=== PATIENT | male | born 1995 | race Caucasian/White ===

== ENCOUNTER 2017-07-28 18:29 | Emergency (ER) | payer SELFPAY ==
[~2017-07-28] VITALS: Ht 198.1 cm; Wt 83.9 kg
[2017-07-28 19:15] VITALS: BP 150/70
[2017-07-28] MEDS ORDERED: ROBAXIN-750750 MG PO (20:52)
[2017-07-28] MEDS ORDERED: ZOFRAN4 M3 ORAL (20:52)
[2017-07-28] MEDS ORDERED: IBUPROFEN600 MG ORAL (20:52)
[2017-07-28 20:58] VITALS: BP 142/72
--- NOTE | 2017-07-29 10:46 | Diagnostic Imaging Report ---
Indication: Back pain Comparison: None Findings: 3 views of the lumbar spine were obtained. No acute fracture or malalignment is identified. There is transitional anatomy at the lumbosacral junction with left unilateral pseudoarthrosis noted. Vertebral body heights and disk spaces are well maintained. Posterior elements are unremarkable. Impression: No acute findings. Left L5-S1 pseudarthrosis
--- NOTE | 2017-07-29 10:47 | Diagnostic Imaging Report ---
Indication: Neck Pain Findings: 3 views of the cervical spine were obtained. There is no acute fracture identified. Alignment is normal. The open-mouth odontoid view shows an intact dens and good alignment of the lateral masses with respect to the body of C2. There is no soft tissue swelling. Impression: Negative cervical spine examination.
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
== END 2017-07-28 20:58 | disposition home or self-care (01) ==
LOC: EMR 19:20
DX: S06.0X0A Concussion without loss of consciousness, initial encounter (principal); S39.012A Strain of muscle, fascia and tendon of lower back, initial encounter; Y92.89 Other specified places as the place of occurrence of the external cause; V49.40XA Driver injured in collision with unspecified motor vehicles in traffic accident, initial encounter
CPT/HCPCS: 72020; 72040; 99284